=== PATIENT | male | born 1975 | race Two or more races ===

== ENCOUNTER 2018-06-29 21:39 | Emergency (ER) | payer OTHER ==
[~2018-06-29] VITALS: Ht 182.9 cm; Wt 90.7 kg
--- NOTE | 2018-06-29 21:42 | NUR ---
PT BIBSELF SEEN AT URGENT CARE TODAY, PT HAD LOW O2 SAT; PT AAOX4, RESPIRATIONS EVEN AND UNLABORED, NO SOB, PT ON MONITOR, ON RA, NAD NOTED, VSS, PENDING MD SINGH
[2018-06-29] MEDS ORDERED: AZITHROMYCIN 250 MG TABLET ONE (22:20)
[2018-06-29] MEDS ORDERED: AZITHROMYCIN 250 MG TABLET PO ONE (22:30)
--- NOTE | 2018-06-29 22:46 | NUR ---
Patient is resting comfortably in bed with eyes closed. Easily aroused. VSS
[2018-06-29 23:22] VITALS: BP 120/64
--- NOTE | 2018-06-29 23:22 | NUR ---
Patient discharged to home in stable condition. Written and verbal after care instructions given. Patient verbalizes understanding of instruction.
== END 2018-06-29 23:47 | disposition home or self-care (01) ==
LOC: ER 21:44
DX: J18.9 Pneumonia, unspecified organism (principal); F17.200 Nicotine dependence, unspecified, uncomplicated; Z88.0 Allergy status to penicillin; Z90.89 Acquired absence of other organs
CPT/HCPCS: 99283; A4606; Z7610